=== PATIENT | female | born 1950 | race Two or more races ===

== ENCOUNTER 2019-09-09 05:30 | Day surgery (SDC) | payer OTHER ==
[2019-09-09] MEDS ORDERED: CIPRO500 MG PO (08:12)
[2019-09-09] MEDS ORDERED: FLAGYL500MG PO (08:13)
[2019-09-09] MEDS ORDERED: DICY20TA PO (08:13)
== END 2019-09-09 09:55 | disposition home or self-care (01) ==
LOC: AMB-ENDOS 05:30 → EDBD 13:15 → ADM 13:15 → AMB-ENDOS 13:15
DX: K62.89 Other specified diseases of anus and rectum (principal); K64.8 Other hemorrhoids; K57.30 Diverticulosis of large intestine without perforation or abscess without bleeding

== ENCOUNTER 2020-03-24 23:48 | Inpatient (IN) | payer OTHER ==
[~2020-03-24] VITALS: Ht 160 cm; Wt 81.6 kg
[~2020-03-24 23:48] MED LIST: CIPRO500 MG PO; DICY20TA PO; FLAGYL500MG PO
--- NOTE | 2020-03-25 00:19 | NUR ---
SE RECIBE PTE ALERTA Y ORIENTADA POR SUSANA. PTE REFIERE PRESENTAR DOLOR EN CUADRANTE INFERIOR DERECHO DEL ABDOMEN DESDE HACE 2 PIERRE, STAR QUE EMPEORO EN LA TARDE DE HOY.
--- NOTE | 2020-03-25 02:15 | NUR ---
SE RECIBE FEMINA ALERTA Y ORIENTADA POR SUSANA ESFERAS, EN SEBAS CON BARANDAS ELEVADAS Y SEGURAS. SE CÉSAR MUESTRAS DE LABORATORIO ORDENADAS. SE CANALIZA CON AREA DE VENOPUNCION ALFRED DE EDEMA O ENROJECIMIENTO. SE ADMINISTRAN MEDICAMENTOS ORDENADOS. SE ENTREGA CONTRASTE PARA CT SCAN.
--- NOTE | 2020-03-25 07:36 | NUR ---
SE REFCIBE PTE FEMENINA DE 69 YRS ALERTA CONCIENTE TRANQUILA . PTE EN ESPERA DE SER REVALUADA POR EL JOY AWAD. SE MANTIENE ALFRED DE DOLOR AL MOMENTO.
[2020-04-05] MEDS ORDERED: PANTOPRAZOLE SO40 MG PO (10:00)
[2020-04-05] MEDS ORDERED: LEVAQUIN750 MG PO (10:00)
[2020-04-05] MEDS ORDERED: FLAGYL500MG PO (10:01)
== END 2020-04-05 11:05 | disposition home or self-care (01) | DRG 373 ==
LOC: ER 23:48 → SURH 03-25 08:55
PROVIDERS: ADMIT Surgery; ATTEND Surgery
PROC: 4A033R1 Measurement of Arterial Saturation, Peripheral, Percutaneous Approach (ICD-10-PCS; 2020-03-27)
PROC: 02HV33Z Insertion of Infusion Device into Superior Vena Cava, Percutaneous Approach (ICD-10-PCS; 2020-03-27)
PROC: BW21ZZZ Computerized Tomography (CT Scan) of Abdomen and Pelvis (ICD-10-PCS; 2020-03-27)
PROC: BW21YZZ Computerized Tomography (CT Scan) of Abdomen and Pelvis using Other Contrast (ICD-10-PCS; 2020-03-30)
PROC: 0W9G3ZX Drainage of Peritoneal Cavity, Percutaneous Approach, Diagnostic (ICD-10-PCS; principal; 2020-04-02)
DX: K35.33 Acute appendicitis with perforation, localized peritonitis, and gangrene, with abscess (principal); Z20.828 Contact with and (suspected) exposure to other viral communicable diseases; E66.8 Other obesity

== ENCOUNTER 2020-05-31 06:52 | Day surgery (SDC) | payer OTHER ==
[~2020-05-31 06:52] MED LIST changes: +LEVAQUIN750 MG PO; +PANTOPRAZOLE SO40 MG PO
[2020-05-31] MEDS ORDERED: INTESTINEX680 M1 PO (10:11)
[2020-05-31] MEDS ORDERED: PERCOCET 5-3251 EACH PO (10:11)
[2020-05-31] MEDS ORDERED: DICY20TA PO (10:12)
[2020-05-31] MEDS ORDERED: PANTOPRAZOLE SO40 MG PO (10:12)
== END 2020-05-31 14:30 | disposition home or self-care (01) ==
LOC: CIR.AMB 06:52
PROVIDERS: ATTEND Surgery
DX: K35.890 Other acute appendicitis without perforation or gangrene (principal); Z20.828 Contact with and (suspected) exposure to other viral communicable diseases

== ENCOUNTER 2021-08-02 06:15 | Emergency (ER) | payer OTHER ==
[~2021-08-02] VITALS: Ht 160 cm; Wt 81.2 kg
[~2021-08-02 06:15] MED LIST changes: +INTESTINEX680 M1 PO; +PERCOCET 5-3251 EACH PO
[2021-08-02] MEDS ORDERED: GLUMETZA500 MG (06:21)
[2021-08-02] MEDS ORDERED: KETO10TA2 PO (11:47)
[2021-08-02] MEDS ORDERED: CIPRO500 MG PO (11:47)
== END 2021-08-02 13:13 | disposition home or self-care (01) ==
LOC: ER 06:15
DX: K80.20 Calculus of gallbladder without cholecystitis without obstruction (principal); R10.84 Generalized abdominal pain; E11.9 Type 2 diabetes mellitus without complications; Z79.84 Long term (current) use of oral hypoglycemic drugs